=== PATIENT | male | born 1955 | race Caucasian/White ===

== ENCOUNTER 2017-08-04 14:57 | Inpatient (IN) | payer MEDICARE ==
[~2017-08-04] VITALS: Ht 172.7 cm; Wt 116.6 kg
[~2017-08-04 14:57] MED LIST: ALBUTEROL SULFAT4 MG PO; ALBUTEROL2.5 MG/31 INH; AMLODIPINE BESY10 MG PO; ASPIR 8181 MG PO; BENZONATATE100 MG PO; BUSPAR 5 MG TABL5 M1 PO; CEFDINIR300 MG PO; CENTRUM SILVER1 EAC2 PO; COLACE100 MG PO; DILAUDID 2 MG TA2 MG PO; DUONEB 2.5-0.5 M3 ML INH; FLOMAX0.4 MG PO; HYDROCODONE-AP1 EAC6 PO; LEVAQUIN 500 M500 M2; LEVAQUIN 500 M500 M2 PO; LEVAQUIN 750 M750 MG PO; LISINOPRIL10 MG PO; LISINOPRIL20 MG PO; MELATONIN3 MG PO; METHADONE HCL 110 M1 PO; MULTI VITAMIN1 EACH PO; MULTIVITAMINS PO; OXYGEN; PAXIL30 MG PO; PERCOCET 10-321 EACH PO; PREDNISONE 10 M10 M1; PREDNISONE 10 M10 M1 PO; PREDNISONE 10 M10 MG; PREDNISONE 10 M10 MG PO; PREDNISONE 20 M20 MG; PREDNISONE 20 M20 MG PO; PRINIVIL10 MG PO; PRINIVIL20 MG; PROAIR HFA8.5 GM INH; PROTONIX40 M2 PO; SINGULAIR 10 MG10 M1 PO; SINGULAIR 10 MG10 MG PO; SYMBICORT80 MCG/4.1; TESSALON PERLE100 MG; TESSALON PERLE100 MG PO; TOPROL XL25 MG PO; XANAX 0.5 MG0.5 MG PO
[2017-08-04] MEDS ORDERED: ONDANSETRON HCL4 M2 PO (15:05)
[2017-08-04] MEDS ORDERED: PROTONIX40 M1 PO (15:06)
[2017-08-04] MEDS ORDERED: PERCOCET PO (15:06)
[2017-08-04] MEDS ORDERED: PREDNISONE 20 M20 MG PO (15:08)
[2017-08-04] MEDS ORDERED: FLORASTOR250 MG PO (15:09)
[2017-08-04] MEDS ORDERED: VANCOCIN 125 M125 M1 PO (15:10)
[2017-08-04] MEDS ORDERED: BROVANA15 MCG/2 M INH (15:12)
[2017-08-04] MEDS ORDERED: VENTOLIN HFA 1818 GM INH (15:12)
[2017-08-04] MEDS ORDERED: PULMICORT0.5 MG/22 INH (15:13)
[2017-08-04] MEDS ORDERED: MUCINEX1200 MG PO (15:13)
[2017-08-04] MEDS ORDERED: DILAUDID 2 MG TA2 MG PO (15:14)
[2017-08-04] MEDS ORDERED: DUONEB 2.5-0.5 M3 ML INH ×2 (15:15→15:16)
[2017-08-04] MEDS ORDERED: TESSALON PERLE100 MG PO (15:18)
[2017-08-04 21:01] VITALS: BP 135/69
--- NOTE | 2017-08-05 04:17 | NUR ---
PT ARRIVED TO FLOOR AT SHIFT CHANGE. PT SETTLED INTO BED, VITAL SIGNS OBTAINED. ADMISSION PAPERWORK AND DATABASES COMPLETED. PT IS ALERT AND ORIENTED X4, POLITE AND COOPERATIVE WITH CARES. PHOTOGRAPHS TAKEN OF VARIOUS SKIN ISSUES, SEE CHART. WOUND VAC DRESSING REMOVED PER INSTRUCTIONS FROM WOUND NURSE, LARGE AMOUNT OF YELLOW DRAINAGE. WET TO DRY DRESSING PLACED, NEW WOUND VAC TO BE PLACED LATER TODAY BY WOUND NURSE. KENDY DRAIN TO RIGHT ABDOMEN WITH SMALL AMOUNT OF YELLOW DRAINAGE. PT ON 3L 02, HOME REGIMEN, HX OF COPD. PT VOIDS PER URINAL WHILE STANDING, PT WEAK, TAKES TWO STAFF TO HOLD HIM UP AND HOLD URINAL. PT VOIDS WELL, DEY D/C'D AT [facility] BEFORE TRANSFER. PT MOVED TO RECLINER PER REQUEST. HOURLY ROUNDING IN PROGRESS, WILL CONTINUE TO MONITOR.
[2017-08-05 04:40] LABS: HEMATOCRIT 23.3 % (42.0-52.0); HEMOGLOBIN 7.6 gm/dL (14.0-18.0); MCH 26.2 pg (26.0-34.0); MCHC 32.5 g/dL (28.0-37.0); MCV 80.5 fL (80.0-100.0); MPV 8.2 fl. (7.2-11.1); RBC 2.9 mil/uL (4.50-6.00); RDW-CV 16.4 % (10.5-14.5); WBC 12.8 thou/uL (4.0-11.0)
[2017-08-05 04:47] LABS: CALCIUM 8.2 mg/dL (8.5-10.1); CREATININE 0.7 mg/dL (0.6-1.3); POTASSIUM 4.1 mmol/L (3.5-5.1)
--- NOTE | 2017-08-05 07:11 | NUR ---
PT SLEPT OFF AND ON OVERNIGHT. HYDROMORPHONE X2 FOR PAIN. CALL LIGHT AND FREQUENTLY USED ITEMS WITHIN REACH. HOURLY ROUNDING COMPLETED.
[2017-08-05 07:30] VITALS: BP 147/77
--- NOTE | 2017-08-05 13:43 | NUR ---
WOUND CARE NOTE: CONSULT RECEIVED FOR WOUND VAC. PATIENT PRESENTS WITH A LARGE FULL THICKNESS MIDLINE ABDOMINAL WOUND; PATIENT S/P ABDOMINAL SURGERY FROM [facility]. WOUND BED IS 95% PINK, MOIST TISSUE AND 5% YELLOW ADHERENT TISSUE. 2 SUTURES PRESENT IN CENTER OF WOUND. DISTAL MOST ASPECT OF WOUND BED WITH CAVITY AND TUNNELING APPROXIMATELY 5CM AT 11 O'CLOCK. DRAINING MODERATE AMOUNTS OF LEE/YELLOW DRAINAGE, NO ODOR NOTED. WOUND MEASURES 29.5X6.5X4.5. XOCHITL-WOUND INTACT. WOUND WAS ASSESSED WITH PHYSICIAN AND NEW ORDERS RECEIVED. WOUND WAS CLEANSED WITH WOUND CLEANSER, PATTED DRY. APPLIED PURACHOL AG TO WOUND BED. PACKED TUNNEL WHITH WHITE FOAM. COVERED ALL WITH BLACK FOAM. SKIN PREPPED. DRAPE APPLIED. GOOD SEAL OBTAINED AT 150MMHG, CONTINUOUS WITH HIGH INTENSITY. PATIENT TOLERATED WELL, DID HAVE SOME PAIN, BUT DID RECIEVE PAIN MEDICATION FROM RN. EDUCATED ON IMPORTANCE OF NUTRITION FOR WOUND HEALING, COMMUNICATED UNDERSTANDING AND EXPRESSED THAT HE DID NOT HAVE MUCH OF AN APPETITE. WILL NEED ENCOURAGEMENT AND POSSIBLE SUPPLEMENTS TO ASSIST WITH NUTRITION. RECOMMEND ENCOURAGE GOOD NUTRITION AND HYDRATION FOR WOUND HEALING. M-W-F DRESSING CHANGES BY WOUND RN
--- NOTE | 2017-08-05 16:33 | NUR ---
PT HAS BEEN UP TO RECLINER AND CALLS FOR ASSIST TO STAND WITH WALKER AND ASSISTED WITH URINAL HELD IN PLACE BY STAFF. PT VOIDS WELL CLEAR YELLOW URINE. COLOSTOMY EMPTIED OF LARGE SOFT BROWN STOOL WITH ASSIST OF NURSING.. PT HAS POOR APPETITE BUT DOES DRINK BOOST. DRESSING TO INCISION OF ABDOMEN, WOUND VAC INTACT AND WAS PLACED TODAY BY WOUND NURSE. WOUND NURSE PLANS TO CHANGE DRESSING THURSDAY AT 1130. KENDY INTACT TO RT ABDOMEN WITH PURULENT DRAINAGE NOTED IN TUBE. PRN FOR PAIN GIVEN WITH GOOD EFFECT. PT REMAINS ALERT AND ORIENTATED AND CALLS FOR ASSIST NEEDS. O2 AT 3L PER NC. PT PROGRESSES TOWARDS GOALS AND HOURLY ROUNDING CONTINUES.
--- NOTE | 2017-08-05 16:37 | NUR ---
SW met with pt to complete initial assessment, introduce self and SW role on rehab unit. Pt lives in hotel/motel with one of his sons and pt says he feels safe there and that his room is handicap accessible. Pt wears 3 L Oxygen all the time, has ostomy and a wound vac will be needed. SW reviewed team conference summary and for pt to remain on rehab at least another week and then for team to reassess pt length of stay during team conference next Saturday 08/12. Pt in agreement with plan. Pt signed consent form for pt Privacy rights. SW discussed pt in a lifetime reserve days through Medicare and provided letter to which pt signed that he is aware of the option to deny using his Lifetime reserve days but that he wants to use these days anyway. SW discussed pt option to apply for Medicaid and SW to contact [employer] to help provide assistance to which pt is in agreement and would prefer any assistance he can receive. SW also mentioned pt does have SNF rehab days however and if needed, and when appropriate, pt may consider dc to SNF. Pt understanding and in agreement with possible plan. SW to continue to follow to assist with safe dc planning. Pt signed paperwork filed in pt chart.
[2017-08-05 20:57] VITALS: BP 123/74
--- NOTE | 2017-08-06 05:13 | NUR ---
ASSUMED PT CARE AT 1930. PT ALERT AND ORIENTED X4, POLITE AND COOPERATIVE WITH CARES. PT SITTING UP IN RECLINER WITH FEET ELEVATED AT SHIFT CHANGE. PT USES WALKER TO STAND TO VOID, MUCH STEADIER THAN LAST NIGHT. WOUND VAC IN PLACE, MULTIPLE ISSUES WITH ALARMS. REINFORCED WITH TEGADERM REPEATEDLY THROUGHOUT NIGHT. PT SLEPT IN BED PART OF NIGHT IN AN ATTEMPT TO MITIGATE WOUND VAC ALARMS WITH SOME SUCCESS. KENDY INTACT TO RIGHT ABDOMEN WITH THICK YELLOW/LEE DRAINAGE. PRN PAIN MEDICATION X2 THIS SHIFT WITH GOOD RESULTS. 02 AT 3L PER NC. CALL LIGHT AND FREQUENTLY USED ITEMS WITHIN REACH. HOURLY ROUNDING IN PROGRESS.
[2017-08-06 08:21] VITALS: BP 128/68
--- NOTE | 2017-08-06 10:50 | CON ---
[address] [address] CONSULTATION Name: JERO BARRIOS Room: [facility] [place] .R.#: [id number] Admission: 08/04/17 Attend Phys: Reanna Hendrickson DO Discharge: Date of : 55 Report #: [id number] THIS REPORT FOR: //name// CC: Logan Hendrickson DATE OF SERVICE: 08/05/2017 ATTENDING PHYSICIAN: Dr. Metcalf. REASON FOR EVALUATION: Ongoing treatment for recurrent C. difficile colitis as well as large intra-abdominal wound due to debridement of multiple soft tissue abscesses, influenza is a complicating factor as well. HISTORY OF PRESENT ILLNESS: Chart reviewed, the patient examined. This is a 62-year-old male with O2 requiring COPD at 3 liters, who has had an extended hospitalization due to initially difficulty with dyspnea, productive cough, fevers and body aches. He was confirmed to have influenza B. While there, developed abdominal pain and was noted to have multiple abdominal abscesses, underwent a wide debridement with some question of a chronic perforation of a sigmoid stump. He had been started on broad-spectrum therapy including piperacillin and tazobactam, oral vancomycin and metronidazole. He apparently completed course for the abscess post-debridement. He is utilizing wound VAC at this point. He does have some residual pain and also has been on a tapering dose of oral vancomycin. He is generally lucid. Denies significant pulmonary related complaints about his baseline from a pulmonary lung standpoint. At this point, he is having soft unformed stools. ALLERGIES: Listed to BACTRIM. CURRENT MEDICATIONS: Include oral vancomycin 120 twice a day, tapering dose prednisone 40 daily, oxycodone, budesonide, pantoprazole, saccharomyces, guaifenesin, hydromorphone, albuterol, ondansetron as needed. PAST MEDICAL HISTORY: Above-noted COPD, has an asthmatic component; previous history of renal lithiasis; obstructive sleep apnea, requiring supplemental oxygen; hypertension; anxiety; depression; history of PE; mitral valve prolapse; previous cholecystectomy. SOCIAL HISTORY: Nonsmoker, no ethanol. FAMILY HISTORY: Noncontributory. REVIEW OF SYSTEMS: As above. PHYSICAL EXAMINATION: [place] [address] CONSULTATION Name: JERO BARRIOS Room: [address] IN [facility]#: [id number] Admission: 08/04/17 Attend Phys: Reanna Hendrickson DO Discharge: Date of : 55 Report #: [id number] GENERAL: He is pleasant, alert, cooperative, appears chronically ill. He is mildly distressed, has supplemental oxygen per nasal cannula. VITAL SIGNS: Temperature 98.1, pulse 113, respirations 24, blood pressure 147/77. SKIN: Warm, dry, no rashes. HEENT: Nasal cannula oxygen in place. NECK: Supple. LUNGS: Diminished overall, he has got a sort of barrel chest, there are some crackles at the bases posteriorly. HEART: Regular. I do not believe he has a murmur. ABDOMEN: Obese, has a wound VAC in place. GENITOURINARY: Deferred. RECTAL: Deferred. LABORATORY DATA: Electrolytes: Sodium 139, potassium 4.1, chloride 103, bicarbonate is 30, BUN and creatinine 9 and 0.7, estimated GFR of 114. CBC: White count 12.8, H and H 7.6 and 23.3, platelets of 257. ASSESSMENT: Clostridium difficile colitis. Agree with tapering dose of steroids. I believe based on the admission, he has another week's worth of twice daily. We will see how he does clinically over the course of the time here. At this point, would continue the wound VAC for the large abdominal wall defect. White count is borderline elevated, we will monitor that as well as clinically to pursue any possible infectious complications. We will have him use incentive spirometer, optimize his nutritional status. <ELECTRONICALLY SIGNED> By: Marco A Capps MD 08/06/17 1050 [id number] Capps MD /nt
--- NOTE | 2017-08-06 12:22 | NUR ---
I have reviewed the documentation by SOURAV BUCIO from 08/06/17 to 08/06/17 and I concur with it. DAVIAN GARCIA
--- NOTE | 2017-08-06 15:30 | NUR ---
SW called and tried to arrange for [facility] to meet with pt regarding applying for Medicaid. No answer, SW left a detailed message and requested a call back. SW to continue to follow to assist with safe dc planning.
--- NOTE | 2017-08-06 16:13 | NUR ---
WOUND NURSE: PATIENT WITH WOUND VAC ON ABDOMINAL WOUND WAS LEEKING WHEN SEEN AROUND 9AM THIS MORNING. REMOVED VAC DRESSING AND CLEANSED WITH WOUND CLEANSER. APPLIED SKIN PREP TO INTACT PERIWOUND TISSUE USING ALLKARE BRAND. THEN PLACED VERSAFOAM INTO THE DEEPEST PART OF T HE WOUND AT THE INFERIOR ASPECT, PLACED THIN LAYER OF PURACHOL PLUS AG INTO TO THE LENGTH OF THE WOUND, THEN PLACED GRANUFOAM CUT TO FIT INTO THE WOUND, THEN COVERD WITH TRANSPARENT DRAPE WITH HOLE CUT TO ALLOW SUCTION, THEN ATTACHED TRAC PAD BETWEEN DRESSING AND WOUND VAC AT 150MMHG CONTINUOUS NEGATIVE PRESSUE. THERE WAS CLOUDY LIGHT YELLOW DRAINAGE NOTED IN THE VAC CANNISTER AND IN THE KENDY DRAIN. THERE WAS NO ASSOCIATED ODOR WITH THIS DRAINAGE HOWEVER. THERE IS ALSO NO PERIWOUND REDNESS, WARMTH, OR INDURATION. WOUND VAC DRESSING IS SECURE AND FUNCTIONING PROPERLY.
--- NOTE | 2017-08-06 17:58 | NUR ---
WOUND VAC TO ABDOMEN HAS REMAINED INTACT AND FUNCTIONS PROPERLY WITH PURULENT DRAINAGE NOTED. PRN FOR PAIN GIVEN WITH GOOD EFFECT. PT CALLS FOR ASSIST WITH URINAL BEING HELD FOR PT AND VOIDINGS ADEQUATE. COLOSTOMY WITH MODERATE BROWN SOFT STOOL EMPTIED THIS AFTERNOON. PT ON 3L O2 PER NC AND REMAINS ALERT AND ORIENTATED. PT CONTINUES TO PROGRESS TOWARDS GOALS AND AMBULATED TO DOOR WITH WALKER AND PT THIS AFTERNOON. HOURLY ROUNDING CONTINUES.
--- NOTE | 2017-08-06 20:25 | NUR ---
SITTING UP IN CHAIR WATCHING TV. WOUND VAC TO ABD INTACT AND DRAINING CLEAR LIGHT BROWN DRAINAGE. COLOSTOMY INTACT WITH SMALL AMOUNT OF SOFT BROWN BM. STATES ABD PAIN AT AN 8 BUT DOESN'T WANT TO TAKE PAIN MED YET. PT STANDS TO VOID WHILE STAFF POSITIONS HOLDS AND EMPTIES THE URINAL. TAKES PILLS WHOLE WITH WATER.
[2017-08-06 20:31] VITALS: BP 118/66
--- NOTE | 2017-08-07 05:29 | NUR ---
PAIN MED GIVEN X ONE DURING THE NIGHT FOR C/O ABD PAIN WITH RELIEF. RESTED ON/OFF. HOURLY ROUNDING IN PROGRESS.
[2017-08-07 07:54] VITALS: BP 127/67
[2017-08-07 08:34] VITALS: BP 127/67
[2017-08-07 10:40] LABS: HEMATOCRIT 24.2 % (42.0-52.0); HEMOGLOBIN 7.9 gm/dL (14.0-18.0); MCH 26.6 pg (26.0-34.0); MCHC 32.7 g/dL (28.0-37.0); MCV 81.6 fL (80.0-100.0); MPV 8.4 fl. (7.2-11.1); NUCLEATED RBCS 0 /100WBC; PLATELET COUNT* 262 thou/uL (150-400); RBC 2.97 mil/uL (4.50-6.00); RDW-CV 16.3 % (10.5-14.5); WBC 9.8 thou/uL (4.0-11.0)
[2017-08-07 10:53] LABS: ALBUMIN 1.7 g/dL (3.4-5.0); CALCIUM 7.9 mg/dL (8.5-10.1); CREATININE 0.8 mg/dL (0.6-1.3); TOTAL BILIRUBIN 0.4 mg/dL (<0.1-1.0)
[2017-08-07 11:01] LABS: ABSOLUTE EOSINOPHILS 0.1 thou/uL (0.0-0.7); ABSOLUTE LYMPHOCYTES 1.1 thou/uL (0.8-5.3); ABSOLUTE MONOCYTES 1.1 thou/uL (0.0-1.2); ABSOLUTE NEUTROPHILS 7.5 thou/uL (1.6-8.1); ATYPICAL LYMPHS 1 %; HYPOCHROMASIA 3+; POLYCHROMASIA 1+
[2017-08-07 11:02] LABS: ANISOCYTOSIS 1+; MICROCYTES 1+; PLATELET ESTIMATE ADEQUATE
--- NOTE | 2017-08-07 16:27 | NUR ---
AM ASSESSMENT AND VITAL SIGNS COMPLETED DOCUMENTED. PT HAS PARTICIPATED WITH ALL THERAPIES TODAY. WOUND VAC CONTINUES TO FUNCTION PROPERLY, CANNISTER CHANGED EARLIER. WOUND DRAINAGE FROM THE KENDY AND THE ABDOMINAL INCISION REMAINS LEE AND PURULENT. DR PURDY ORDERED PO ABX, FIRST DOSE GIVEN THIS AM. PRN MEDICATIONS EFFECTIVE FOR PAIN CONTROL. SPECIAL CONTACT ISOLATION CONTINUES FOR CDIFF. HOURLY ROUNDING AND FALL PRECAUTIONS IN PLACE.
[2017-08-07 20:40] VITALS: BP 106/64
--- NOTE | 2017-08-08 01:15 | NUR ---
AT 0000, THIS RN WAS ASSISTING PT USE URINAL WHILE STANDING. RN NOTICED A SMALL POCKET OF PURULENT DRAINAGE ON LEFT LOWER PORTION OF DRESSING THAT WAS SEEPING OUT OF THE BLACK FOAM. PT FINISHED URINAL AND STARTED TO SIT DOWN ONTO BED, THE DRAINAGE LEAKED OUT FROM TRANSPARENT DRESSING ONTO FLOOR. ASSISTED PT WITH CLEANING AND CHANGING. AFTER PT LAID DOWN IN BED, DRAINAGE WAS NO LONGER LEAKING UNDER TRANSPARENT DRESSING. DRESSING WAS STILL INTACT. VAC ALARMS DID NOT GO OFF. TUBING STILL PATENT. APPLIED ADDITIONAL TRANSPARENT DRSG FOR REINFORCEMENT. WILL CONTINUE TO MONITOR.
--- NOTE | 2017-08-08 06:48 | NUR ---
PT ALERT AND ORIENTED X 4. PLEASANT. ON C DIFF ISOLATION PRECAUTIONS. ON O2 3L NC. C/O PAIN TO ABD. PAIN MEDS GIVEN NEEDED. COLOSTOMY BAG HAD LARGE SOFT BM. KENDY DRAIN TO RIGHT SIDE ABD WITH VERY MINIMAL DRAINAGE. PT STOOD TO USE URINAL AGAIN THIS AM AND AGAIN PURULENT DRAINAGE BEGAN TO POOL TO LEFT LOWER ABD WOUND DRSG. PRESSURE APPLIED TO SITE TO AVOID LEAKAGE. AFTER PT LAID BACK DOWN, DRAINAGE REABSORBED BACK INTO WOUND VAC. WOUND VAC RUNNING CONTINUOUS ON 150 MMHG. BLE EDEMA 3+. LEGS UP ONTO PILLOWS IN BED. NEEDS ASSIST WITH URINAL PLACEMENT. MOD ASSIST WITH GAIT BELT AND WALKER. CALL LIGHT IN REACH BED ALARM ON.
[2017-08-08 07:53] VITALS: BP 124/65
--- NOTE | 2017-08-08 18:56 | NUR ---
PT HAS RESTED IN BED THIS AM AND IS UP TO CHAIR THIS AFTERNOON WITH WOUND VAC INTACT AND FUNCTIONING WELL AFTER NEW CANNISTER REINSERTED.DRAINAGE REMAINS PURULENT IN MODERATE AMOUNT.PRN FOR PAIN GIVEN WITH GOOD EFFECT.PT PROGRESSES TOWARDS GOALS AND HOURLY ROUNDING CONTINUES.
[2017-08-08 20:40] VITALS: BP 109/68
--- NOTE | 2017-08-09 04:45 | NUR ---
ASSUMED PT CARE AT 1930. PT ALERT AND ORIENTED X4, POLITE AND COOPERATIVE WITH CARES. ON SPECIAL CONTACT PRECAUTIONS FOR C DIFF. ON 3L 02 PER NC. PRN DILAUDID TWICE THIS SHIFT FOR ABDOMINAL PAIN. COLOSTOMY BAG WITH LARGE SOFT BM. KENDY DRAIN TO RIGHT ABDOMEN WITH SMALL AMOUNT OF DRAINAGE. PT STANDS TO USE URINAL, NEEDS HELP WITH PLACEMENT. WOUND VAC RUNNING CONTINUOUS ON 150 MMHG. NO ALARMS THIS SHIFT. MODERATE AMOUNT OF PURULENT DRAINAGE IN WOUND VAC. MOD ASSIST WITH GAIT BELT AND WALKER. CALL LIGHT AND FREQUENTLY USED ITEMS WITHIN REACH. HOURLY ROUNDING IN PROGRESS, WILL CONTINUE TO MONITOR.
[2017-08-09 07:30] VITALS: BP 122/77
--- NOTE | 2017-08-09 18:07 | NUR ---
pt has been up to chair most of day and calls for assist with urinal.abd pain controlled with po medications and vound vac remains intact and functions well. pt remains on o2 at 2l per nc and is alert and orientated. colostomy with brown stool present. hourly rounding continues and pt progresses towards goals.
[2017-08-09 20:12] VITALS: BP 128/71
--- NOTE | 2017-08-10 05:03 | NUR ---
ASSUMED PT CARE AT 1930. PT ALERT AND ORIENTED X4, POLITE AND COOPERATIVE WITH CARES. ON SPECIAL CONTACT PRECAUTIONS FOR C DIFF. ON 3L O2 PER NC. PRN DILAUDID TWICE THIS SHIFT FOR ABDOMINAL PAIN. COLOSTOMY BAG WITH MODERATE AMOUNT OF SOFT STOOL. KENDY DRAIN TO RIGHT ABDOMEN WITH SMALL AMOUNT OF DRAINAGE. PT STANDS TO USE URINAL, NEEDS HELP WITH PLACEMENT. WOUND VAC RUNNING CONTINUOUS ON 150 MMHG. NO ALARMS THIS SHIFT. LARGE AMOUNT OF PURULENT DRAINAGE IN WOUND VAC. DRESSING TO BE CHANGED TODAY BY WOUND NURSE. NEED CULTURE OF DRAINAGE PER DR. PURDY WITH DRESSING CHANGE AND PICTURES TO BE TAKEN OF WOUND. MOD ASSIST WITH GAIT BELT AND WALKER. CALL LIGHT AND FREQUENTLY USED ITMES WITHIN REACH. BED ALARM ON FOR SAFETY. HOURLY ROUNDING IN PROGRESS, WILL CONTINUE TO MONITOR.
[2017-08-10 07:30] VITALS: BP 137/71
[2017-08-10 11:49] LABS: HEMATOCRIT 24.5 % (42.0-52.0); HEMOGLOBIN 8.1 gm/dL (14.0-18.0); MCH 26.5 pg (26.0-34.0); MCHC 33.1 g/dL (28.0-37.0); MCV 80.1 fL (80.0-100.0); MPV 8.2 fl. (7.2-11.1); NUCLEATED RBCS 0 /100WBC; PLATELET COUNT* 534 thou/uL (150-400); RBC 3.06 mil/uL (4.50-6.00); RDW-CV 16.2 % (10.5-14.5); WBC 8.1 thou/uL (4.0-11.0)
[2017-08-10 12:02] LABS: ALBUMIN 1.9 g/dL (3.4-5.0); CALCIUM 8.3 mg/dL (8.5-10.1); CREATININE 0.9 mg/dL (0.6-1.3); POTASSIUM 3.6 mmol/L (3.5-5.1); TOTAL BILIRUBIN 0.2 mg/dL (<0.1-1.0); TOTAL PROTEIN 6.4 g/dL (6.4-8.2)
[2017-08-10 12:17] LABS: ABSOLUTE EOSINOPHILS 0.1 thou/uL (0.0-0.7); ABSOLUTE LYMPHOCYTES 1.5 thou/uL (0.8-5.3); ABSOLUTE NEUTROPHILS 5.5 thou/uL (1.6-8.1); ATYPICAL LYMPHS 2 %; METAMYELOCYTES 1 %; PLATELET ESTIMATE INCREASED
[2017-08-10 12:18] LABS: HYPOCHROMASIA 3+; LARGE PLATELETS FEW; MACROCYTES 1+
--- NOTE | 2017-08-10 14:26 | NUR ---
I have reviewed the documentation by SOURAV BUCIO from 08/10/17 to 08/10/17 and I concur with it. DAVIAN GARCIA
--- NOTE | 2017-08-10 18:17 | NUR ---
ASSUMMED CARE OF PT AT 0730, PT ALERT AND ORIENTED, PT TRANSFERS WITH ASSIST OF 1 GB WALKER, PT COMPLAINS OF PAIN IN ABD, MEDICATED PER ORDER, WD NURSE CHANGED WD VAC, DRAINAGE IN WD VAC SEROUS [place] SINCE WD VAC DRESSING CHANGED, COLOSTOMY CHANGED PER WD NURSE, MODERATE AMOUNT OF SOFT BROWN STOOL OUT, KENDY DRAIN PATENT, PARTICIPATED IN ALL THERAPIES, PT WILL GO TO DR TRUONG OFFICE THURSDAY, PT GIVEN FORMS TO FILL OUT PRIOR TO APPOINTMENT, FORMS PLACED ON CHART, HOURLY ROUNDING COMPLETED, TAKING FOOD AND FLUIDS WELL, VOIDS PER URINAL IN STANDING POSITION, UP IN RECLINER MUCH OF SHIFT, PT ENCOURAGED TO SHIFT WEIGHT IN CHAIR, ASSESSMENT COMPLETE, WILL CONTINUE TO MONITER.
[2017-08-10 20:09] VITALS: BP 125/77
[2017-08-11 04:54] LABS: CALCIUM 8.1 mg/dL (8.5-10.1); CREATININE 0.7 mg/dL (0.6-1.3); MAGNESIUM 1.8 mg/dL (1.8-2.4)
[2017-08-11 04:55] LABS: HEMOGLOBIN 7.6 gm/dL (14.0-18.0); MCH 26.4 pg (26.0-34.0); MCHC 33.1 g/dL (28.0-37.0); MCV 79.6 fL (80.0-100.0); MPV 8.3 fl. (7.2-11.1); RBC 2.88 mil/uL (4.50-6.00); RDW-CV 16.3 % (10.5-14.5); WBC 8.4 thou/uL (4.0-11.0)
--- NOTE | 2017-08-11 05:12 | NUR ---
ASSUMED PT CARE AT 1930. PT ALERT AND ORIENTED X4, POLITE AND COOPERATIVE WITH CARES. PT S/P BOWEL PERFORATION/ABDOMINAL WOUND. PT C/O PAIN TO ABDOMEN SCHEDULED AND PRN PAIN MEDICATIONS GIVEN. WOUND VAC CHANGED ON DAY SHIFT, PER PT PAIN WORSE SINCE DRESSING CHANGE. SEROSANGUINOUS DRAINAGE TO WOUND VAC SINCE DRESSING CHANGE. COLOSTOMY TO LEFT ABDOMEN, MODERATE AMOUNT OF SOFT BROWN STOOL OUT. KENDY DRAIN TO LEFT ABDOMEN, SMALL AMOUNT OF PURULENT OUTPUT. PT STANDS TO VOID, STAFF POSITIONS, HOLDS AND EMPTIES URINAL. PT IN RECLINER THIS SHIFT. PT ON SPECIAL CONTACT PRECAUTIONS FOR C DIFF. CALL LIGHT AND FREQUENTLY USED ITEMS WITHIN REACH. USES CALL LIGHT APPROPRIATELY. HOURLY ROUNDING IN PROGRESS, WILL CONTINUE TO MONITOR.
[2017-08-11 07:53] VITALS: BP 132/66
--- NOTE | 2017-08-11 09:56 | NUR ---
SHARON called [facility] to try to follow up on status of referral. SHARON left another message requesting call back. SHARON received notice of pt appt on 08/14 at 11:30 am [place] [address] [place] [address] Strickland [phone]. SHARON to arrange for wc van/stretcher if needed for pt to have transportation to and from appt. SHARON to continue to follow.
--- NOTE | 2017-08-11 16:26 | NUR ---
ASSUMMED CARE OF PT AT 0730, PT ALERT AND ORIENTED, PT TRANSFERS WITH ASSIST OF 1 GB AND WALKER, PT COMPLAINS OF ABDOMINAL PAIN, MEDICATED PER ORDER, PT CONCERNED ABOUT HAVING ADEQUATE PAIN CONTROL WHEN HE GOES FOR HIS APPT ON THURSDAY, PHYSICIAN HAS ORDERED SPECIFIC PAIN MEDS FOR PRIOR TO GOING TO APPT, WD VAC WAS NOT FUNCTIONING PROPERLY, WD NURSE CHANGED DRESSING AND IS NOW WORKING APPROPRIATELY, CULTURE WAS SENT TO LAB, PARTICIPATED IN ALL THERAPIES, MODERATE AMOUNT OF SOFT BROWN STOOL IN COLOSTOMY, HOURLY ROUNDING COMPLETED,PT VOIDS PER TOILET, ASSESSMENT COMPLETE, WILL CONTINUE TO MONITER.
--- NOTE | 2017-08-11 17:17 | NUR ---
I have reviewed the documentation by SOURAV BUCIO from to 08/11/17 and I concur with it. DAVIAN GARCIA
[2017-08-11 20:21] VITALS: BP 137/79
--- NOTE | 2017-08-12 00:59 | NUR ---
PT WOUND VAC ALARM SAYS BLOCKAGE. SUCTIONING IS FLUCTUATING FROM 0-125 MMHG. TUBING WAS FLUSHED AND SMALL AREA OPEN TO DRESSING WAS REINFORCED. NO FURTHER ALARMS BUT SUCTIONING STAYING AT 125 MMHG. WILL CONTINUE TO MONITOR.
--- NOTE | 2017-08-12 05:31 | NUR ---
ASSUMED CARES AT 1920. PT ALERT AND ORIENTED. PLEASANT. ON O2 3L NC. TAKES PILLS WHOLE WITHOUT ISSUES. DILAUDID GIVEN PRN FOR ABD PAIN. WOUND VAC TO ABD RUNNING AT 125 MMHG AND HAS PURULENT DRAINAGE. KENDY DRAIN TO RIGHT ABD. COLOSTOMY HAD MODERATE AMOUNT OF SOFT UNFORMED STOOL. PT IS A MIN ASSIST WITH GAIT BELT AND WALKER. STAFF ASSISTS [facility] URINAL PLACEMENT AND EMPTYING. CALL LIGHT IN REACH AND BED ALARM ON.
[2017-08-12 08:53] VITALS: BP 144/78
--- NOTE | 2017-08-12 11:17 | NUR ---
AM ASSESSMENT AND VITAL SIGNS COMPLETED DOCUMENTED. WOUND VAC FUNCTIONING PROPERLY AT THIS TIME, DRESSING WILL BE CHANGED ON THURSDAY IF THERE ARE NO ISSUES BETWEEN THEN AND NOW. PT CONTINUES TO TAKE SCHEDULED TRAMADOL AND TAKES PRN DILAUDID FOR BREAKTHROUGH PAIN AT INCISION SITE. DISCHARGE GOALS DISCUSSED, PT ENCOURAGED TO START DOING MORE OF HIS COLOSTOMY CARE AND TOILETING WITHOUT MUCH STAFF ASSISTANCE IN ANTICIPATION OF DISCHARGE. FALL PRECAUTIONS AND HOURLY ROUNDING CONTINUE.
--- NOTE | 2017-08-12 15:31 | NUR ---
SW met with pt to review team conference summary. Plan for pt to remain on rehab at least one more week with team to reteam next Thursday. Possibility for pt to dc on Thursday. Pt said that he felt the decision for him to be able to dc home vs SNF would be determined by whether or not he would need a wound vac for home. SHARON discussed Frances with [facility] to be contacting pt to begin process of applying for Medicaid again. SHARON received call shortly thereafter from Frances stating that pt qualifies and that she will fax SW paperwork for pt to sign. SHARON to arrange pt ride to appt on 08/14 at 11:30 am. SHARON to continue to follow to assist with safe dc planning.
--- NOTE | 2017-08-12 16:44 | NUR ---
I have reviewed the documentation by SOURAV BUCIO from 08/12/17 to 08/12/17 and I concur with it. DAVIAN GARCIA
--- NOTE | 2017-08-12 16:44 | NUR ---
I have reviewed the documentation by SOURAV BUCIO from 08/12/17 to 08/12/17 and I concur with it. DAVIAN GARCIA
[2017-08-12 20:27] VITALS: BP 116/66
--- NOTE | 2017-08-12 23:00 | NUR ---
ASSUMED CARE AT 1930. PATIENT S/P DEBILITY. ON C DIFF PRECAUTIONS. UP WITH ONE, GAIT BELT, WALKER, WOUND VAC. WOUND VAC DRESSING C/D/I, KENDY DRAINING PURULENT DRAINAGE. COLOSTOMY APPLIANCE INTACT, DRAINING VERY SMALL AMOUNT OF SOFT STOOL. VOIDED PER TOILET, BUT MISSED TOILET THIS EVENING. TOOK PAIN MED AT HS. TAKES PILLS WHOLE WITH WATER WITHOUT DIFF. STILL SITTING IN RECLINER AT THIS TIME. BILAT FEET EDEMATOUS, INSTRUCTED TO ELEVATE LEGS, STATES WILL DO SO IN BED. HOURLY ROUNDING CONTINUES, CALL LITE IN REACH. CHAIR AND BED ALARMS IN USE.
--- NOTE | 2017-08-13 06:50 | NUR ---
RESTED IN BED FROM ABOUT MIDNIGHT UNTIL AROUND 0500. HAD VERY LARGE FORMED STOOL THAT WAS DIFFICULT TO REMOVE FROM BAG PART OF TWO PART APPLIANCE. SKIN CARE DONE, APPLIANCE BAG REAPPLIED. KENDY DRAINS PURULENT DRAINAGE IN SCANT AMOUNTS, WOUND VAC DRAINS LIGHT BROWN LIQUID. NOW SITTING IN RECLINER WITH LEGS ELEVATED. C/O PAIN, GIVEN SCHEDULED PAIN MEDS, SEE SEP. O2 3L/NC CONTINUES. HOURLY ROUNDS CONTINUE. BED ALARM USED, CHAIR ALARM ON. CALL LITE IN REACH.
[2017-08-13 08:30] VITALS: BP 130/75
--- NOTE | 2017-08-13 15:25 | NUR ---
I have reviewed the documentation by SOURAV BUCIO from 08/13/17to 08/13/17 and I concur with it. DAVIAN GARCIA
--- NOTE | 2017-08-13 15:51 | NUR ---
SW met with pt to provide pt with paperwork from [facility] for pt to sign. Pt signed as needed and SW faxed to Frances at [facility]. SW to continue to follow to assist with safe dc planning.
--- NOTE | 2017-08-13 16:27 | NUR ---
PT HAS AMBULATED IN LOVE TO GYM WITH THERAPY,WALKER,GAITBELT AND STEADY GAIT. PRN FOR PAIN GIVEN THIS AM AND SCHEDUALED WITH GOOD EFFECT. WOUND VAC REMAINS INTACT TO ABDOMEN WITH GOOD SUCTION. PT CALLS FOR ASSIST TO BATHROOM TO VOID WITH GOOD OUTPUT. COLOSTOMY WITH SOFT BROWN STOOL NOTED. PT REMAINS ALERT AND ORIENTATED AND PROGRESSES TOWARDS GOALS. HOURLY ROUNDING CONTINUES.
--- NOTE | 2017-08-13 16:47 | NUR ---
PT HAS APPOINTMENT WITH [facility] TOMORROW AND WILL LEAVE AT 1030 PER TRANSPORTATION VAN.PT AND THERAPY AWARE.
[2017-08-13 20:28] VITALS: BP 115/61
--- NOTE | 2017-08-14 05:03 | NUR ---
ASSUMED PT CARE AT 1930. PT S/P BOWEL PERFORATION, DEBILITY. PT SITTING IN RECLINER AT SHIFT CHANGE. ON C DIFF PRECAUTIONS. WOUND VAC TO MIDLINE ABDOMINAL WOUND, DRESSING C/D/I AND OCCLUSIVE. KENDY TO RIGHT ABDOMEN DRAINING SMALL AMOUNT OF PURULENT DRAINAGE. PT UP WITH ONE, GAIT BELT AND WALKER TO VOID. PRN PAIN MEDICATION AT HS AND SCHEDULED TRAMADOL. BILATERAL FEET EDEMATOUS, LEFT MORE THAN RIGHT. COLOSTOMY TO LEFT LOWER ABDOMEN WITH SOFT BROWN STOOL. ON 3L 02 CONTINUOUS PER HOME REGIMINE. BED AND CHAIR ALARMS IN USE. CALL LIGHT AND FREQUENTLY USED ITEMS WITHIN REACH. PT TO SURGEON'S OFFICE TODAY FOR REMOVAL OF KENDY DRAIN. 1X ORDERS FOR PAIN MEDICATIONS TO BE GIVEN PRIOR TO TRANSPORT. USES CALL LIGHT APPROPRIATELY. HOURLY ROUNDING IN PROGRESS, WILL CONTINUE TO MONITOR.
[2017-08-14 07:44] VITALS: BP 133/81
--- NOTE | 2017-08-14 10:41 | NUR ---
WOUND CARE NOTE: REMOVAL OF WOUND VAC FOR TRANSFER TO SURGEON FOLLOW UP APPOINTMENT. WOUND CONTINUES TO DRAIN MILKY WHITE DRAINAGE FROM DISTAL ASPECT TUNNEL, ALSO HAS FIBEROUS TYPE MATERIAL. ONE PIECE OF THE MATERIAL APPEARS THAT IT MAY BE A MELON SEED OF SOME SORT. CENTER OF WOUND BED, DISTAL TO SUTURE THERE IS A TUNNEL APPROXIMATELY 6CM DEEP THAT DRAINS THE MILKY WHITE DRAINAGE. WOUND DOES NOT HAVE ANY FOUL ODOR.
--- NOTE | 2017-08-14 18:43 | NUR ---
PT HAS BEEN TO TODAY TO HAVE ABDOMINAL WOUND CHECKED WITH NO RECOMENDATIONS GIVEN. WOUND VAC DRESSING REPLACED THIS AFTERNOON BY WOUND NURSE AND IS FUNCTIONING WELL. PRN FOR PAIN GIVEN WITH GOOD EFFECT. COLOSTOMY BAG CHANGED AND PT HAS HAD GOOD OUTPUT OF SOFT BROWN STOOL. WOUND NURSE PLANS TO CHANGE COLOSTOMY STOMA ON THURSDAY. PT REMAINS ON O2 AT 3L PER NC AND AMBULATES TO BATHROOM TO VOID WITH WALKER,GAITBELT AND MIN ASSIST OF 1. PT REMAINS ALERT AND ORIENTATED AND CONTINUES TO PROGRESS TOWARDS GOALS, HOURLY ROUNDING CONTINUES.
[2017-08-14 20:36] VITALS: BP 139/70
--- NOTE | 2017-08-15 05:38 | NUR ---
ASSUMED CARE OF PATIENT AT APPROXIMATELY 1999. PATIENT UP IN CHAIR AND A/O X 4 AND VSS. PATIENT UP WITH 1, GAIT BELT, AND A WALKER. PATIENT CONTINUES TO TAKE PILLS WITH WATER AND IS TOLERATING WELL. WOUND VAC REMAINS ON PATIENT'S ABDOMEN. DRAINAGE OUTPUT IS THICKENED AND GRAYISH AT THIS TIME. PATIENT'S COLOSTOMY HAS MODERATE AMOUNT OF THICK, BROWN STOOL. BAG WAS CHANGED 08/14/17. MOM WAS GIVEN PRN PER PATIENT REQUEST FOR THICKENING STOOL. PATIENT'S MD OUT OF FACILITY OFFICE VISIT WENT WELL 08/14/17 AND A FOLLOW-UP APPOINTMENT IS SCHEDULED FOR 09/01/17. KENDY DRAIN IS PRESENT ON PATIENT'S RIGHT UPPER QUADRANT OF HIS ABDOMEN. SANGUINOUS DRAINAGE IS SMALL AMOUNT WAS PRESENT AT SHIFT CHANGE. PATIENT REMAINS ON 3L O2, AT HOME, AND IS SATTING WELL ABOVE 95% WITH SUPPLEMENTED OXYGEN. PATIENT TURNS SELF, WITH SOME HELP. PATIENT SLEPT OFF AND ON OVERNIGHT, AND REQUESTED PAIN MEDICATION PRN X 2 DURING SHIFT. PATIENT'S MAIN DISCOMFORT AT THIS TIME IS D/T HIS WOUND VAC AND IT BEING REPACKED ON 08/14/17 AFTER HIS OFFICE VISIT. HOURLY ROUNDS PERFORMED. NURSING TO FOLLOW-UP NECESSARY. ALL FALL PRECAUTIONS IN PLACE, INCLUDING CALL LIGHT WITHIN REACH. WILL CONTINUE TO MONITOR CLOSELY.
[2017-08-15 08:19] VITALS: BP 141/76
--- NOTE | 2017-08-15 13:38 | NUR ---
ASSUMED CARE AT 0730. ALERT ORIENTED PLEASANT COOPERATIVE. HX OF S/P BOWEL PERFORATION SURGERY HAS WOUND VAC AND COLOSTOMY AND RADHA PARK DRAIN IN PLACE. O2 ON AT 3L/M PER N/C. IN SPECIAL CONTACT ISOLATION FOR HX OF C DIFF. USES CALL LIGHT APPROPRIATELY FOR ASSISTANCE. AMBULATES TO BR FOR VOIDING USES WALKER GAIT BELT. PARTICIPATING IN THERAPIES. MEDICATED X 2 WITH PRN MED FOR ABDOMINAL DISCOMFORT THIS A.M. APPETITE GOOD FEEDS SELF TAKES MEDS WITHOUT DIFFICULTY.
--- NOTE | 2017-08-15 18:41 | NUR ---
WOUND VAC OPERATING WELL AT 150MM/HG MOD AMT. OF WHITE FLAKY APPEARANCE DRAIANGE NOTED IN TUBING. PT. STATES THE SUCTION IS DIFFERENT FEELING SINCE WOUND NURSE DID DRESSING CHANGE YESTERDAY STRONGER PULL ON ABDOMINAL MUSCLES. MEDICATED X 1 THIS AFTERNOON WITH PRN PAIN MED. COLOSTOMY EMPTIED X 1 THIS AFTERNOON SOFT UNFORMED BM. UP IN RECLINER MOST OF THE DAY.
[2017-08-15 19:54] VITALS: BP 124/72
--- NOTE | 2017-08-16 05:18 | NUR ---
ASSUMED CARES AT 1920. PT ALERT AND ORIENTED. PLEASANT. ON O2 3L NC. C/O ABD PAIN. PAIN MEDS GIVEN PRN. WOUND VAC TO ABD RUNNING AT 150 MMHG. HAS LEE COLORED DRAINAGE. COLOSTOMY BAG EMPTIED X 2 WITH SOFT UNFORMED STOOL. HE IS A MIN ASSIST WITH GAIT BELT AND WALKER. UP TO BATHROOM FEW TIMES DURING THE NIGHT. DOES OWN CARES. TAKES PILLS WITHOUT ISSUES. CALL LIGHT IN REACH.
[2017-08-16 07:37] VITALS: BP 146/82
--- NOTE | 2017-08-16 15:12 | NUR ---
ASSUMED CARE AT 0730. ALERT ORIENTED PLEASANT COOPERATIVE. HX OF S/P ABDOMINAL WOUND DUE TO BOWEL PERFORATION WOUND VAC COLOSTOMY AND RADHA PARK DRAIN IN PLACE. WOUND VAC FUNCTIONING WELL AND DRAINING CREAM COLORED DRAINAGE INTO CANISTER. PT. MEDICATED X 1 FOR C/O PAIN DUE TO PRESSURE RELATED TO WOUND VAC UP IN RECLINER AT BEDSIDE THROUGHOUT THE DAY. O2 ON AT 3L/M PER N/C. AMBULATES TO BR TO VOID WITH WALKER AND GAIT BELT WITH SBA. APPETITE GOOD FEEDS SELF TAKES MEDS WITHOUT DIFFICULTY. IN SPECIAL PRECAUTIONS FOR HX OF C-DIFF.
[2017-08-16 19:53] VITALS: BP 127/70
--- NOTE | 2017-08-17 04:56 | NUR ---
ASSUMED CARES AT 1920. PT ALERT AND ORIENTED. PLEASANT. ON CDIFF PRECAUTIONS. ON O2 3L NC. C/O PAIN TO ABD. PAIN MEDS GIVEN. ABD WOUND VAC RUNNING AT 150 MMHG WITHOUT ISSUES. DRAINAGE IS LEE COLORED. KENDY DRAIN TO RUQ ABD. COLOSTOMY BAG EMPTIED X 2 WITH SOFT UNFORMED STOOL. HE IS A MIN ASSIST WITH GAIT BELT AND WALKER. UP TO BATHROOM FEW TIMES DURING THE NIGHT. SLEPT OFF AND ON. CALL LIGHT IN REACH.
[2017-08-17 07:30] VITALS: BP 122/76
--- NOTE | 2017-08-17 12:45 | NUR ---
ASSUMED CARE AT 0730. ALERT ORIENTED PLEASANT COOPERATIVE. HX OF BOWEL PERFORATION S/P ABDOMINAL WOUND WITH WOUND VAC AND HAS COLOSTOMY WITH SMALL AMT. SOFT BROWN STOOL. RADHA PARK DRAIN WITH MINUTE AMT. DRAINAGE NOTED. WOUND DRAINAGE IS CREAM COLORED IN CANNISTER. O2 ON AT 3L/M PER N/C CONTINOUSLY. SITTING UP IN RECLINER AT BEDSIDE. PARTICIPATING IN THERAPIES AMBULATING WITH WALKER GAIT BELT WITH SBA TO BR TO VOID IN TOILET. IN SPECIAL CONTACT PRECAUTIONS FOR HX OF C-DIFF. MEDICATED WITH PRN PAIN MED X 2 AND SCHEDULED TRAMADOL AT 1200. FEEDS SELF TAKES MEDS WITHOUT DIFFICULTY. AFTER LUNCH PT. STATED FEELING SWEATY HEAD NECK AREAS BUT SKIN WARM AND DRY AT PRESENT. TEMP THIS A.M. WAS 99.0 NOW 99.8 AT 1230. WILL MONITOR CLOSELY ENCOURAGE IS FOR DEEP BREATHING.
[2017-08-17 20:17] VITALS: BP 148/70
--- NOTE | 2017-08-18 05:02 | NUR ---
ASSUMED CARES AT 1915. PT ALERT AND ORIENTED. PLEASANT. HAS PAIN TO ABD WOUND. PAIN MEDS GIVEN PRN. WOUND VAC TO ABD AT 150 MMHG WITH LEE COLORED DRAINAGE. KENDY DRAIN TO RUQ ABD WITH MINIMAL LEE DRAINAGE. COLOSTOMY BAG WITH MODERATE SOFT BROWN STOOL. PT ON O2 3L NC. HE IS A MIN ASSIST WITH GAIT BELT AND WALKER. UP TO BATHROOM. TAKES PILLS WHOLE WITHOUT ISSUES. USED CALL LIGHT APPROPRIATELY.
[2017-08-18 07:57] VITALS: BP 131/86
[2017-08-18 10:44] LABS: HEMATOCRIT 26.8 % (42.0-52.0); HEMOGLOBIN 8.6 gm/dL (14.0-18.0); MCH 25.1 pg (26.0-34.0); MCV 78.4 fL (80.0-100.0); MPV 7.7 fl. (7.2-11.1); NUCLEATED RBCS 0 /100WBC; PLATELET COUNT* 392 thou/uL (150-400); RBC 3.42 mil/uL (4.50-6.00); WBC 16.7 thou/uL (4.0-11.0)
[2017-08-18 11:04] LABS: ALBUMIN 2.3 g/dL (3.4-5.0); ALKALINE PHOSPHATASE 104 U/L (46-116); ANION GAP 6 mmol/L (7-16); BUN 14 mg/dL (7-18); CALCIUM 8.1 mg/dL (8.5-10.1); CHLORIDE 101 mmol/L (98-107); CO2 32 mmol/L (21-32); CREATININE 0.9 mg/dL (0.6-1.3); GLUCOSE 142 mg/dL (70-99); POTASSIUM 3.9 mmol/L (3.5-5.1); SGOT 28 U/L (15-37); SGPT 49 U/L (30-65); SODIUM 139 mmol/L (136-145); TOTAL BILIRUBIN 0.2 mg/dL (<0.1-1.0); TOTAL PROTEIN 6.2 g/dL (6.4-8.2); TROPONIN-I LEVEL <0.06 ng/mL (<0.06)
[2017-08-18 11:16] LABS: ABSOLUTE MONOCYTES 0.5 thou/uL (0.0-1.2); ABSOLUTE NEUTROPHILS 14.2 thou/uL (1.6-8.1); ANISOCYTOSIS 1+; ATYPICAL LYMPHS 2 %; METAMYELOCYTES 2 %; MYELOCYTES 2 %; PLATELET ESTIMATE ADEQUATE; POLYCHROMASIA 1+
[2017-08-18 16:00] LABS: URINE BILIRUBIN NEGATIVE (Negative); URINE BLOOD NEGATIVE (Negative); URINE CLARITY CLEAR; URINE COLOR STRAW; URINE GLUCOSE-RANDOM NEGATIVE (Negative); URINE KETONES NEGATIVE (Negative); URINE LEUKOCYTES-REFLEX NEGATIVE (Negative); URINE NITRITE-REFLEX NEGATIVE (Negative); URINE PROTEIN NEGATIVE (Negative); URINE SPECIFIC GRAVITY <= 1.005 (1.005-1.030); URINE UROBILINOGEN 0.2 E.U./dl (0.2-1.0)
--- NOTE | 2017-08-18 16:32 | NUR ---
ASSUMMED CARE OF PT AT 0730, PT STATES HAS NOT FELT WELL SINCE LAST EVENING, STATES HE FEELS WEAK, AND HAS PAIN IN LEFT LOWER RIB/CHEST AREA WITH DEEP BREATHING, PT TACHYCARDIC, O2 SATS 99% ON 3 LITERS, PHYSICIAN NOTIFIED, ORDERS OBTAINED, RESULTS CALLED TO PHYSICIAN, IV STARTED IN RIGHT AC FOR CTA, INFILTRATED IN CT SCAN AND RESTARTED IN RIGHT FOREARM, RIGHT AC SITE SWOLLEN BUT NO REDNESS NOTED, URINE SENT TO LAB FOR TESTS, COLOSTOMY INTACT WITH SMALL AMOUNT OF BROWN STOOL, WD VAC PATENT AND DRAINING CREAM/BROWN DRAINAGE, CANNISTER CHANGED, KENDY DRAIN INTACT, PT VOIDS PER TOILET, PT TRANSFERS WITH ASSIST OF 1 GB AND WALKER, TOENAILS CUT PER RETORT UNLOADER, PT PARTICIPATED IN THERAPIES, PT REMAINS AFEBRILE THIS SHIFT, PT COMPLAINS OF PAIN IN ABD, MEDICATED PER ORDER, PT CONTINUES TO COMPLAIN OF WEAK FEELING, PT ENCOURAGED TO COUGH AND DEEP BREATHE, C DIFF PRECAUTIONS MAINTAINED, HOURLY ROUNDING COMPLETED, ASSESSMENT COMPLETE, WILL CONTINUE TO MONITER.
[2017-08-18 16:37] VITALS: BP 115/67
--- NOTE | 2017-08-18 16:57 | EKG ---
[place] [id number] ELECTROCARDIOGRAM REPORT Name: JERO BARRIOS [facility] [id number] Admission: 08/04/17 Attend Phys: Reanna Hendrickson DO Discharge: Date of : 55 Report #: [id number] THIS REPORT FOR: //name// [facility] Test Date: 2017-08-18 Test Time: 10:17:28 Pat Name: JERO BARRIOS Department: Room: [address] Gender: M Retread Builder: SERAFIN DALY : 1955 Requested By: Bola Sosa Order Number: [id number] Lauren MD: Chadd Shah Measurements Intervals [place] Rate: 107 P: -6 SC: 172 QRS: 5 QRSD: 91 T: 42 QT: 308 QTc: 411 Interpretive Statements Sinus tachycardia Probable left atrial enlargement Low voltage, precordial leads Electronically Signed On 08-18-2017 16:57:30 ELEVATOR TENDER by Chadd Shah [email or web address] <ELECTRONICALLY SIGNED> By: Chadd Shah MD, [facility] 08/18/17 1657 [id number] [id number] Chadd Shah MD, FACC /EPI
[2017-08-18 20:33] VITALS: BP 115/68
--- NOTE | 2017-08-18 20:40 | NUR ---
SITTING UP IN RECLINER WITH LEGS ELEVATED. WOUND VAC TO ABD WOUND INTACT. RASH IN LEFT AXILLARY AREA HEALING. 02 NC AT 3 LITERS WITH 02 SAT OF 100% PAIN MEDS GIVEN FOR C/O ABD PAIN RATED "8". TOOK MEDS WHOLE WITH TEA. SNACK PROVIDED. COLOSTOMY INTACT WITH SMALL AMOUNT BROWN LIQUID STOOL. KENDY DRAIN INTACT. WHILE DECOMPRESSING KENDY DRAIN FOUL ODOR NOTED.
--- NOTE | 2017-08-19 05:07 | NUR ---
WENT TO SLEEP ABOUT MIDNIGHT. UP X ONE DURING THE NIGHT TO THE BATHROOM TO VOID. PAIN MEDS LAST GIVEN AT 0340 FOR C/O ABD PAIN WITH RELIEF. HOURLY ROUNDING IN PROGRESS.
[2017-08-19 07:59] VITALS: BP 123/72
[2017-08-19 11:23] LABS: INFLUENZA A ANTIGEN None Detected (None Detect); INFLUENZA B ANTIGEN None Detected (None Detect)
--- NOTE | 2017-08-19 15:06 | NUR ---
SW met with pt to review team conference summary. SW discussed plan for pt to dc to SNF on Thursday and pt is in agreement with plan. Pt preference for [facility] and second choice would be a SNF in surrounding area. SW faxed referral to [facility] and SW will continue to follow to assist with safe dc planning.
--- NOTE | 2017-08-19 15:06 | NUR ---
I have reviewed the documentation by SOURAV BUCIO from 08/19/17 to 08/19/17 and I concur with it. DAVIAN GARCIA
--- NOTE | 2017-08-19 16:35 | NUR ---
WOUND CARE NOTE: WOUND VAC CHANGE. UPON ENTERING PATIENT'S ROOM, FOUL ODOR NOTED. DRESSING REMOVED, STRONG FOUL ODOR NOTED THAT DID NOT GO AWAY WITH CLEANSING. LARGE AMOUNTS OF BROWN/LEE/CREAM COLORED DRAINAGE TO DISTAL PORTION OF WOUND CONTINUES. PHYSICIAN IN TO SEE WOUND, NEW ORDERS OBTAINED. APPLIED MULTIPLE LAYERS OF VASELINE GAUZE OVER THE DISTAL PORTIONS WHERE THE ABNORMAL DRAINAGE IS OCCURING AND COVERED WITH WHITE FOAM. SKIN PREPPED. APPLIED BLACK FOAM OVER WOUND AND VASELINE/WHITE FOAM AREAS. GOOD SEAL OBTAINED AT 150MMHG. SPOKE WITH SURGEON'S PARTNER AND UPDATED ON FINDINGS. RECOMMEND IF LEAK OCCURS, REMOVE DRESSINGS, VASELINE GAUZE, WHITE FOAM, AND BLACK FOAM, PACK WITH A WET TO DRY DRESSING.
--- NOTE | 2017-08-19 16:44 | NUR ---
I have reviewed the documentation by SOURAV BUCIO from 08/19/17 to 08/19/17 and I concur with it. DAVIAN GARCIA
--- NOTE | 2017-08-19 17:53 | NUR ---
ASSUMED CARE AT 0730 PATIENT ALERT/ORIENTED, UP WITH ASSIST OF ONE WALKER AND GAIT BELT, PAIN MEDS GIVEN NEEDED FOR ABDOMEN PAIN, WOUND NURSE, KAYLEIGH CHANGED WOUND VAC THIS AFTERNOON, CONCERNED ABOUT DRAINAGE, NEW ORDERS INITIATED BY DR TELLEZ AND DR JOSE AMBROSE CONSULTED; KAYLEIGH SPOKE DIRECTLY WITH HIM AND HE WILL SEE PATIENT THURSDAY. IF WOUND VAC DRESSING LEAKS, WE ARE TO REMOVE, PLACE WET/DRY DRESSING AND CHANGE PRN UNTIL AFTER TESTS TOMORROW WHEN HE WILL BE REEVALUATED AT THAT TIME. PARTICIPATED IN ALL THERAPIES TODAY, DOES NOT GO TO DINING ROOM DUE TO ISOLATION PRECAUTIONS AND WOUND VAC, PATIENT IS NOT COMFORTABLE. HOURLY ROUNDING COMPLETED, BED/CHAIR ALARMS IN PLACE. PATIENT HAS COLOSTOMY THAT HE HIS OWN CARES ON. CONTINUE WITH CURRENT PLAN OF CARE
[2017-08-19 20:00] VITALS: BP 122/66
--- NOTE | 2017-08-20 04:59 | NUR ---
ASSUMED PT CARE AT 1930. PT ALERT AND ORIENTED X4, POLITE AND COOPERATIVE WITH CARES. PT UP WITH ASSIST OF ONE, GAIT BELT AND WALKER TO BATHROOM TO VOID. SCHEDULED AND PRN PAIN MEDICATION GIVEN FOR ABDOMINAL PAIN. WOUND VAC TO ABDOMEN WORKED FLAWLESSLY OVERNIGHT, NO ALALRMS. 02 AT 3L PER NC. KENDY DRAIN WITH SMALL AMOUNT OF FOUL SMELLING DRAINAGE. COLOSTOMY INTACT, SMALL AMOUNT OF BROWN LIQUID STOOL, PT PERFORMS CARES. CONTACT ISOLATION CONTINUES FOR C DIFF. CALL LIGHT AND FREQUENTLY USED ITEMS WITHIN REACH. ALARMS ON FOR SAFETY. HOURLY ROUNDING IN PROGRESS, WILL CONTINUE TO MONITOR.
[2017-08-20 08:12] VITALS: BP 128/74
--- NOTE | 2017-08-20 15:18 | NUR ---
I have reviewed the documentation by SOURAV BUCIO from 08/20/17 to 08/20/17 and I concur with it. DAVIAN GARCIA
--- NOTE | 2017-08-20 17:06 | NUR ---
SHARON received notice that pt needed to transfer to [place] due to pt wound abscesses. SHARON called [facility] transfer team at [phone]. SHARON faxed pt face sheet and transfer team to discuss with Dr Hendrickson. SHARON provided transfer form and ambulance form to pt nurse for possible pt transfer this evening.
--- NOTE | 2017-08-20 17:09 | NUR ---
WOUND NURSE: CHECKED ON WOUND VAC DRESSING AND IT REMAINS INTACT AND FUNCTIONING PROPERLY. CONTINUES TO DRAIN LIGHT YELLOWISH MILKY OPAQUE DRAIANGE FROM THE WOUND. PATIENT TO SEEN THE SURGEON DR. AMBROSE TOMORROW FOR FOLLOW UP POST CT SCAN.
[2017-08-20 18:15] VITALS: BP 128/74
[2017-08-20 18:28] VITALS: BP 128/74
--- NOTE | 2017-08-20 21:00 | NUR ---
ASSUMED CARES AT 1930. PT UP IN RECLINER. ALERT AND ORIENTED. PLEASANT. PT TO BE D/C TO [facility]. REPORT WAS GIVEN TO ALMA DELIA RAIN ([facility] [facility]) BY EBENEZER RAIN. TRANSPORTER NOTIFIED. WOUND VAC TO ABD WAS REMOVED AND WET TO DRY DRESSING APPLIED BY EBENEZER RAIN. DILAUDID GIVEN FOR PAIN. PT TAKEN BY TRANSPORTER VIA STRETCHER. ALL PERSONAL BELONGINGS PACKED AND SENT WITH PT. PT LEFT UNIT AT 2019.
--- NOTE | 2017-09-02 13:45 | PLAN ---
[facility] [address] [place] [address] REHAB UNIT PLAN OF CARE Name: JERO BARRIOS Room: [address] IN [facility].#: [id number] Admission: 08/04/17 Attend Phys: Reanna Hendrickson, Discharge: 08/20/17 Date of : 55 Report #: [id number] THIS REPORT FOR: //name// CC: Logan Hendrickson OVERALL PLAN OF CARE This is a 62-year-old male admitted to inpatient rehabilitation to facilitate safe discharge home, status post acute hospitalization beginning on 07/16/2017 with diagnosis of a small bowel perforation, acute laparotomy, complex wound care and also influenza B as well as C. diff, both treated medically and by Infectious Disease. He is currently on oral vancomycin. Previous level of function was modified independent to independent with activities of daily living. Current level of function is minimum to dependent with activities of daily living, depending on therapy, activity and time of day. He also has some mild cognitive impairments and memory impairments. MEDICAL PROGNOSIS: Good. REHABILITATION PROGNOSIS: Good. Estimated length of stay is 12-14 days with discharge disposition to the home setting where he lives in a motel with his 33-year-old son who can also provide some help. Physical therapy will see the patient 60-90 minutes per day, 5 days per week, working on upper and lower body strength, balance, coordination, navigation. Occupational therapy will work with the patient 60-90 minutes per day, 5 days per week, working on upper and lower body strength, balance, coordination, navigation, bathing, dressing, and toileting. Speech and language pathology will work with the patient 30-90 minutes per day, 5 days per week, working on cognitive impairment. Social interaction, problem solving. This is an overall plan of care, may change from time to time. We will team weekly and make changes to plan of care as needed. <ELECTRONICALLY SIGNED> By: Reanna Hendrickson DO 09/02/17 1345 1527 [id number] Hendrickson DO /nt
--- NOTE | 2017-09-02 13:45 | H ---
[address] [address] HISTORY AND PHYSICAL Name: JERO BARRIOS Room: [address] IN M.R.#: [id number] Admission: 08/04/17 Attend Phys: Reanna Hendrickson, DO Discharge: 08/20/17 Date of : 55 Report #: [id number] THIS REPORT FOR: //name// CC: Logan Hendrickson DATE OF SERVICE: 08/04/2017 HISTORY OF PRESENT ILLNESS: This is a 62-year-old male, admitted to inpatient rehabilitation to facilitate safe discharge home, status post acute hospitalization beginning on 07/16/2017 due to a small bowel perforation and significant wound care in the anterior abdominal wall. He had several days of productive cough, fever, body aches, pains and increased debility. He also had C. diff treated in the hospital. He is currently utilizing oxygen as well 3 liters. He does have an ostomy that was placed on 04/01/2017 after a bowel perforation. During the most recent hospitalization, he was tested positive for influenza B, treated for that, had acute on chronic respiratory failure, morbid obesity with a BMI greater than 50. He was having severe abdominal pain during last hospitalization. A CT showed abscess with possible perforation in the sigmoid stump. He did undergo emergent exploratory laparotomy on 07/19/2017 for abdominal washout and closure. He was maintained in the postoperative period on a wound VAC. He has had no significant changes since the preadmission screening. Previous level of function was independent to modified independent with activities of daily living. Current level of function is minimum to dependent depending on therapy, activity and time of day. He does have a [place] in place. He has mild impairment of comprehension, expression, problem solving and memory. Estimated length of stay is 12-14 days, with discharge disposition to the home setting where he does stay halfway in a motel and his 33-year-old son also in good health resides with him and can provide some support on discharge if needed. The patient has multiple medical comorbidities requiring acute medical care. PAST MEDICAL HISTORY: COPD, O2 dependent, currently on 3 liters. Morbid obesity with a BMI greater than 50. Bilateral lower extremity neuropathy, C. diff, anemia with a hemoglobin of 8.1. Depression, anxiety, history of left lower extremity DVT, history of PE, diverticulitis, status post history of bowel perforation with ostomy placement, hypokalemia, hypomagnesemia, acute on chronic respiratory failure, asthma, GERD. PAST SURGICAL HISTORY: Tonsillectomy, cholecystectomy, right wrist cyst removal, maxillary sinus cyst removal, laminectomy L4-S1, sigmoidectomy after colostomy. ALLERGIES: BACTRIM. MEDICATIONS: Reviewed and reconciled by myself and are available in [place] [address] HISTORY AND PHYSICAL Name: JREO BARRIOS Room: [facility] IN ..#: [id number] Admission: 08/04/17 Attend Phys: Reanna Hendrickson DO Discharge: 08/20/17 Date of : 55 Report #: [id number] SOCIAL HISTORY: No tobacco, alcohol or illicit drug use. FAMILY HISTORY: No known contributing medical history from the family. REVIEW OF SYSTEMS: A 14-point review of systems is done and is negative except as mentioned in HPI, specifically no fever, chest pain, shortness of breath, abdominal pain or distention, change in bowel or change in bladder. PHYSICAL EXAMINATION: GENERAL: Alert and oriented, in no apparent distress. VITAL SIGNS: Reviewed and are stable. HEENT: Head atraumatic, normocephalic. Pupils equal, round, reactive. ABDOMEN: Soft, nontender, nondistended. Abdominal wound is visualized today. Wound care notes do contain those, it is approximately 12 inches x 3 inches x 1.5 inches with 80% granulation, some distal and purulent drainage, but no tract can be identified or undermining. MUSCULOSKELETAL: No clubbing, cyanosis or edema. 5/5 strength in the bilateral upper and lower extremities. ASSESSMENT: 1. Significant debility status post acute hospitalization with a small bowel perforation post exploratory laparotomy, with previous bowel perforation utilizing colostomy. 2. Acute on chronic respiratory failure with increased oxygen per O2 nasal cannula. 3. Multiple medical comorbidities requiring acute daily care. PLAN: 1. Admission to inpatient rehabilitation. 2. PT, OT, speech, language, case management, nursing and wound nurse to make evaluations and recommendations. 3. We will apply wound VAC at 150 mmHg, changed on Thursday, Thursday and Thursday with white foam on the distal and black foam on the upper 80%, with collagen to the base of the wound. 4. Plan of care is pending and will team him weekly. 5. Medications were reviewed and reconciled by myself and are available in the MAR. We did add in a statin for some [place] in the bilateral groins and the left armpit. <ELECTRONICALLY SIGNED> By: Reanna Hendrickson DO 09/02/17 1345 1524 [id number] Hendrickson DO /nt
--- NOTE | 2017-09-22 14:42 | D ---
[facility] [address] [place] [address] DISCHARGE SUMMARY Name: JERO BARRIOS Room: [address] IN M.R.#: [id number] Admission: 08/04/17 Attend Phys: Reanna Hendrickson DO Discharge: 08/20/17 Date of : 55 Report #: [id number] THIS REPORT FOR: //name// CC: Logan Hendrickson DATE OF SERVICE: 08/20/2017 DISCHARGE DIAGNOSES: Debility status post acute hospitalization for small bowel perforation and significant wounds in the anterior abdominal wall. DISCHARGE DISPOSITION: To [facility] for ongoing care as he has been diagnosed via CT with multiple abscesses about the abdominal wall. The patient was admitted, was progressing with therapies; however, he did have some oozing from his wound. Negative pressure wound therapy had been applied. After a couple of days, there was significant odor to the wound and CT was obtained, which showed at least 4 abscesses in the abdominal wall. He was having some increased pain and was unable to complete his 3 hours of therapy a day. Due to that, [place] was contacted to facilitate discharge for further care. Diet will stay the same. Recommend continuing physical and occupational therapy. Negative pressure wound device was removed prior to transfer. Due to the acuity of this discharge, the patient was not seen for physical exam prior to discharge. <ELECTRONICALLY SIGNED> By: Reanna Hendrickson DO 09/22/17 1442 1512 [id number] Hendrickson DO /shawn
== END 2017-08-20 20:20 | disposition short-term general hospital (02) | DRG 947 ==
LOC: M.REH 14:57
PROVIDERS: Internal Medicine; Specialist; ADMIT Physical Medicine & Rehabilitation
DX: R53.81 Other malaise (principal); K63.1 Perforation of intestine (nontraumatic); J96.20 Acute and chronic respiratory failure, unspecified whether with hypoxia or hypercapnia; K65.1 Peritoneal abscess; A41.89 Other specified sepsis; A04.71 Enterocolitis due to Clostridium difficile, recurrent; L02.211 Cutaneous abscess of abdominal wall; E66.01 Morbid (severe) obesity due to excess calories; Z68.39 Body mass index [BMI] 39.0-39.9, adult; J44.9 Chronic obstructive pulmonary disease, unspecified; G62.9 Polyneuropathy, unspecified; F32.9 Major depressive disorder, single episode, unspecified; I10 Essential (primary) hypertension; F41.9 Anxiety disorder, unspecified; D50.9 Iron deficiency anemia, unspecified; K21.9 Gastro-esophageal reflux disease without esophagitis; Z99.81 Dependence on supplemental oxygen; Z86.711 Personal history of pulmonary embolism; Z86.718 Personal history of other venous thrombosis and embolism; Z79.01 Long term (current) use of anticoagulants; Z90.49 Acquired absence of other specified parts of digestive tract; Z93.3 Colostomy status; Z88.1 Allergy status to other antibiotic agents; Z88.2 Allergy status to sulfonamides; Z79.899 Other long term (current) drug therapy